=== PATIENT | male | born 1970 | race Caucasian/White ===

== ENCOUNTER → 2017-10-09 | Outpatient (CLI) | payer BC ==
[~2017-10-09] MED LIST: CLC100 PO; CLON0.5T3 PO; DIAZ-165 PO; DICL-201 PO; EFFSR75 PO; NXM/40 PO; OXYC-57 PO; SALINE SPRAY; TYLENOL ALLERGY PO; [UNRECOGNIZED DRUG - CODE] PO
[2017-10-09 17:33] LABS: BASO % 0.4 %; BASO ABS # 0.04 K/uL (0-0.2); COMPLETE YES; EOS % 2.3 %; HEMATOCRIT 41.9 % (42-52); IG% 0.6 %; LYMPH % 34.5 %; LYMPH ABS # 3.32 K/uL (1.2-3.4); MEAN CORPUSCULAR HEMOGLOBIN 26.2 pg (25-34); MEAN PLATELET VOLUME 9.2 fL (7.4-10.4); MONO % 8.7 %; NEUT % 53.5 %; PLATELET COUNT 233 K/uL (130-400); RED BLOOD COUNT 5.11 M/uL (4.7-6.1); WHITE BLOOD COUNT 9.63 K/uL (4.8-10.8)
[2017-10-09 17:52] LABS: BLOOD UREA NITROGEN 7 mg/dl (7-18); BUN/CREATININE RATIO 9.4 (10-20); CALCIUM 8.9 mg/dl (8.5-10.1); CARBON DIOXIDE 28 mmol/L (21-32); CHLORIDE 109 mmol/L (98-107); CREATININE 0.71 mg/dl (0.60-1.40); GLUCOSE 101 mg/dl (70-99); POTASSIUM 4.1 mmol/L (3.5-5.1); SODIUM 142 mmol/L (136-145)
== END | disposition home or self-care (01) ==
LOC: C.LABPBG 13:37
PROVIDERS: ATTEND Family Medicine
DX: R51 Headache (principal)

== ENCOUNTER → 2017-11-11 | Outpatient (CLI) | payer OTHER ==
[2017-11-11 12:42] LABS: BASO % 0.6 %; BASO ABS # 0.03 K/uL (0-0.2); EOS % 4.5 %; EOS ABS # 0.24 K/uL (0-0.5); HEMATOCRIT 40.1 % (42-52); HEMOGLOBIN 13.5 g/dL (14.0-18.0); IG# 0.02 K/uL (0.00-0.02); LYMPH % 46.6 %; LYMPH ABS # 2.46 K/uL (1.2-3.4); MEAN CORPUSCULAR HEMOGLOBIN 27.3 pg (25-34); MEAN CORPUSCULAR HGB CONC 33.7 g/dl (32-36); MEAN PLATELET VOLUME 9.8 fL (7.4-10.4); MONO % 7.6 %; NEUT % 40.3 %; NEUT ABS # 2.13 K/uL (1.4-6.5); PLATELET COUNT 223 K/uL (130-400); RED CELL DISTRIBUTION WIDTH CV 14.6 % (11.5-14.5); RED CELL DISTRIBUTION WIDTH SD 42.5 fL (36.4-46.3); WHITE BLOOD COUNT 5.28 K/uL (4.8-10.8)
[2017-11-11 13:21] LABS: HEMOGLOBIN A1C 6.7 % (4.5-5.6)
[2017-11-11 15:19] LABS: ALBUMIN 3.9 gm/dl (3.4-5.0); ALT/SGPT 40 U/L (12-78); AST/SGOT 24 U/L (15-37); BLOOD UREA NITROGEN 9 mg/dl (7-18); CALCIUM 9.1 mg/dl (8.5-10.1); CARBON DIOXIDE 29 mmol/L (21-32); CREATININE 0.74 mg/dl (0.60-1.40); GLUCOSE 172 mg/dl (70-99); POTASSIUM 4.1 mmol/L (3.5-5.1); SODIUM 139 mmol/L (136-145)
[2017-11-11 15:33] LABS: ALKALINE PHOSPHATASE 75 U/L (45-117); CHOLESTEROL 171 mg/dl (0-200); TOTAL PROTEIN 7.1 gm/dl (6.4-8.2)
== END | disposition home or self-care (01) ==
LOC: C.LABPBG 09:21
PROVIDERS: ATTEND Family Medicine
DX: R61 Generalized hyperhidrosis (principal); E11.40 Type 2 diabetes mellitus with diabetic neuropathy, unspecified

== ENCOUNTER → 2018-06-10 | Outpatient (CLI) | payer OTHER ==
[~2018-06-10] MED LIST changes: -CLON0.5T3 PO; +KLN/5 PO
[2018-06-10 13:38] LABS: HEMOGLOBIN A1C 6.2 % (4.5-5.6)
[2018-06-10 13:57] LABS: ALBUMIN 3.4 gm/dl (3.4-5.0); ALKALINE PHOSPHATASE 93 U/L (45-117); ALT/SGPT 62 U/L (12-78); AST/SGOT 29 U/L (15-37); BLOOD UREA NITROGEN 12 mg/dl (7-18); CALCIUM 8.4 mg/dl (8.5-10.1); CARBON DIOXIDE 26 mmol/L (21-32); CHOLESTEROL 135 mg/dl (0-200); CREATININE 0.72 mg/dl (0.60-1.40); GLUCOSE 123 mg/dl (70-99); LDL CHOLESTEROL CALCULATED 65 mg/dl; POTASSIUM 4.2 mmol/L (3.5-5.1); SODIUM 139 mmol/L (136-145); TOTAL PROTEIN 7.1 gm/dl (6.4-8.2)
== END | disposition home or self-care (01) ==
LOC: C.LABPBG 08:10
PROVIDERS: ATTEND Family Medicine
DX: E11.40 Type 2 diabetes mellitus with diabetic neuropathy, unspecified (principal); E78.5 Hyperlipidemia, unspecified; E66.01 Morbid (severe) obesity due to excess calories

== ENCOUNTER 2024-04-20 15:38 | Observation (INO) ==
--- NOTE | 2024-04-20 15:53 | ED Triage Note ---
Date of Service April 20, 2024 Provider in Triage Author: Daphne Stauffer History of Present Illness This patient was briefly evaluated while in triage. An abbreviated physical exam was performed. This patient is a 53-year-old Male who presents to the ED for evaluation rectal pain x 1.[address] today and was sent over for "fistula" Per CT report : 4 cm left perianal abscess with probable associated perianal fistula. Physical Exam GENERAL: NAD unable to sit CARDIOVASCULAR: RRR RESPIRATORY: CTA Initial orders for labs and / or imaging were placed and patient was placed in the waiting area until a bed is available. Please see further documentation for the full ED course.
--- NOTE | 2024-04-20 16:19 | Emergency Department Note ---
ED Provider Note History of Present Illness Chief Complaint: Referred by Doctor Stated Complaint: ABN RESULTS Time Seen by Provider: 04/20/24 16:17 This is a 53-year-old male who was referred to the emergency department by his primary care provider for a perianal abscess and perianal fistula identified on CT abdomen and pelvis today. The patient developed left-sided rectal pain about 1 to 1.5 weeks ago. The pain has become more severe every day. He has not had any constipation until today. Has not had any fevers or chills. No abdominal pain, nausea, vomiting. He has no history of Crohn's, ulcerative colitis, or abscesses or fistulas in the past. No rectal surgeries in the past. He has not noticed any discharge from his rectum. Home Medications Medication Instructions Recorded Confirmed Type cholecalciferol (vitamin D3) 50 2,000 units PO QAM 11/22/20 04/20/24 History mcg (2,000 unit) capsule fluticasone propionate 50 1 sprays intranasal HS 11/22/20 04/20/24 History mcg/actuation nasal spray,suspension ascorbic acid (vitamin C) 1,000 mg 1 g PO QAM 07/11/21 04/20/24 History tablet multivitamin (Daily Multi-Vitamin 1 tab PO QAM 07/11/21 04/20/24 History tablet) acetaminophen 500 mg oral powder 1,000 mg PO BID PRN Pain 07/16/22 04/20/24 History packet (Tylenol Extra Strength) thiamine HCl (vitamin B1) 250 mg 250 mg PO QAM 11/24/23 04/20/24 History tablet vitamin B complex 1 tab PO QAM 01/09/24 04/20/24 History pregabalin 200 mg capsule (Lyrica) 200 mg PO BID #180 caps 02/03/24 04/20/24 Rx clonidine HCl 0.1 mg tablet 0.1 mg PO HS 04/20/24 04/20/24 History hydroxyzine pamoate 50 mg capsule 50 mg PO HS 04/20/24 04/20/24 History silodosin 8 mg capsule (Rapaflo) 8 mg PO QAM 04/20/24 04/20/24 History Allergies Allergy/AdvReac Type Severity Reaction Status Date / Time No Known Allergies Allergy Mild Verified 04/20/24 18:08 Past Med/Surg History Problem List Perianal fistula (Acute) Abscess, perianal (Acute) Encounter for pre-operative examination Urinary hesitancy Urinary frequency Thiamine deficiency Seizure-like activity History of COVID-19 Anxiety History of alcohol dependence Skin cancer, basal cell L eye S/P gastric bypass (02/15/21) Vitamin D deficiency BPH (benign prostatic hyperplasia) Chronic rhinitis (Acute) Chronic sinusitis (Acute) Morbid obesity (Acute) BMI 45.4 Obstructive sleep apnea (Acute) cpap Vitamin B12 deficiency Diabetic peripheral neuropathy Headache HLD (hyperlipidemia) Iron deficiency anemia Osteoarthritis Type 2 diabetes mellitus GERD (gastroesophageal reflux disease) Medical History History of COVID-19 (2021) resolved History of alcohol dependence (2020) quit 2020 Rectal mass reason for current colonoscopy Hx of pilonidal cyst surgery to remove Diabetic peripheral neuropathy BPH (benign prostatic hyperplasia) prostate checked recently, "said it was fine" Vitamin D deficiency History of panic attacks Anxiety Hx of iron deficiency anemia HLD (hyperlipidemia) History of obstructive sleep apnea no longer uses cpap, resolved with gastric bypass Hx of basal cell carcinoma Hx of type 2 diabetes mellitus resolved with gastric bypass GERD (gastroesophageal reflux disease) 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 Derek brunson. History of esophagogastroduodenoscopy (EGD) History of surgery on right wrist History of left shoulder replacement History of bilateral inguinal hernia repair History of wisdom tooth extraction Status post correction of deviated nasal septum History of umbilical hernia repair Family History Father Rheumatoid arthritis Mother HLD (hyperlipidemia) Aunt Cerebral aneurysm Grandmother (Maternal) Cerebral aneurysm Grandfather (Maternal) Family history of diabetes mellitus Sister Family history of diabetes mellitus Grandfather (Maternal) Myocardial infarction Grandmother (Paternal) Myocardial infarction Grandmother (Maternal) Myocardial infarction Stroke Other No family history of adverse response to anesthesia Denies family history of Ovarian cancer Prostate cancer Breast cancer Colorectal cancer Social History Smoking Status: Unknown if ever smoked Tobacco Type: Cigars Cigarettes Per Day: 5-10 cigars per day; Second Hand Exposure: No; Do You Dip or Chew Tobacco: No; Tobacco Cessation Education Requested by Patient: No Hx Alcohol Use: Yes Alcohol Intake Frequency: Monthly or Less Hx Substance Use: No Preferred Language: Urdu Communication Ability: Effective Visual Impairment: No Limitations Hearing Ability: Normal Inspector General Required: No Beliefs That Will Affect Care: None marital status: Current Living Situation: Spouse Current Living Situation Comment: Lives with and 2kids current occupational status: retired 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[employer]) Other Information That Helps Us Care for You: No Feels Safe at Home: Yes Safety Concerns: Feels Safe At This Time Childhood Exposure to Second-Hand Smoke: Yes Diet: regular Diet Comment: regular caffeine: Yes during the past year weight has: remained stable Dental Care, Regularly: Yes Physical Activity Frequency: Daily Physical Activity Frequency Comment: cut down trees Seatbelt Use: always Sunscreen Use: No Assistive Devices: Glasses Assistive Devices Comment: readers Physical Exam Vital Signs Vital Signs - 24 hr 04/20/24 15:51 04/20/24 18:35 04/20/24 19:58 Temperature 98.1 F Temperature Source Temporal Artery Scan Pulse Rate 75 Pulse Rate [Apical] 56 L 55 L Pulse Rhythm [Apical] Regular Pulse Strength [Apical] Normal Respiratory Rate 19 16 18 Respiratory Effort / Characteristics Non-Labored Spontaneous Non-Labored Spontaneous Respiratory Depth Normal Normal Respiratory Pattern Regular Blood Pressure 108/70 Blood Pressure [Right Arm] 111/69 107/65 Blood Pressure Mean 82 Blood Pressure Mean [Right Arm] 83 79 Blood Pressure Position [Right Arm] Lying Pulse Oximetry 97 96 96 Oxygen Delivery Method Room Air Room Air Room Air Sepsis Recent Fever Within 48 Hours No Sepsis New/Unexplained Change in Mental Status N/A Sepsis Action Taken by Nursing No Action Required CONSTITUTIONAL: Well developed, well nourished, in no acute distress. EYES: conjunctivae normal, extraocular muscles intact. No scleral icterus ENMT: External ears normal. Nose with normal external appearance, no congestion. Oral mucous membranes moist. Oropharynx normal. NECK: Full active range of motion. RESPIRATORY: Breathing unlabored and symmetric. Lungs clear to auscultation bilaterally. No wheeze, rales, or rhonchi. CARDIOVASCULAR: Regular rate and rhythm. No murmurs, rubs, or gallops. ABDOMEN: Normal bowel sounds. Soft, nontender, no peritonitis. No masses. RECTAL: There is swelling and induration along the left side of the rectum. This is very tender to palpation and abuts the anus. There is minimal erythema. MUSCULOSKELETAL: Moves all extremities at all joints without pain or difficulty. SKIN: [place], warm, dry. NEUROLOGIC: Awake, alert, oriented. No focal deficits. PSYCHIATRIC: Appropriate. Normal affect Course Administered Medications Dextrose/Lactated Ringer's (D5w And Lactated Ringers) 1,000 mls @ 80 mls/hr IV .[id number] JENNIFER Stop: 05/20/24 18:44 Last Admin: 04/20/24 19:55 Dose: 80 mls/hr Documented By: WILLIAM Medical Decision Making Differential Diagnosis Perianal abscess, perirectal abscess, fistula, Crohn's, ulcerative colitis, sepsis, among other pathology Laboratory Data 04/20/24 16:07 04/20/24 16:07 Lab Results 04/20/24 Range/Units 16:07 WBC 10.48 (4.8-10.8) K/ul RBC 5.15 (4.70-6.10) M/uL Hgb 16.4 (14.0-18.0) g/dl Hct 47.1 (42.0-52.0) % MCV 91.5 (80.0-100.0) fL MCH 31.8 (25.0-34.0) pg MCHC 34.8 (32.0-36.0) g/dL RDW Std Deviation 43.1 (36.4-46.3) fL RDW Coeff of Shaista 12.8 (11.5-14.5) % Plt Count 185 (130-400) K/uL MPV 9.3 L (9.4-12.4) fL Immature Gran % (Auto) 0.3 % Neut % (Auto) 72.4 % Lymph % (Auto) 17.0 % [place] % (Auto) 7.9 % Eos % (Auto) 1.8 % Baso % (Auto) 0.6 % Neut # (Auto) 7.59 H (1.40-6.50) K/uL Lymph # (Auto) 1.78 (1.20-3.40) K/uL [place] # (Auto) 0.83 H (0.11-0.59) K/uL Eos # (Auto) 0.19 (0.00-0.50) K/uL Baso # (Auto) 0.06 (0.00-0.20) K/uL Immature Gran # (Auto) 0.03 (0.01-0.20) K/uL Sodium 139 (136-145) mmol/L Potassium 3.9 (3.5-5.1) mmol/L Chloride 107 (98-107) mmol/L Carbon Dioxide 28 (21-32) mmol/L Anion Gap 4 (3-11) BUN 9 (6-23) mg/dl Creatinine 0.51 L (0.6-1.4) mg/dl Est Cr Clr Drug Dosing 150.7 ml/min Est GFR ( Amer) 143.2 ml/min Est GFR (Non-Af Amer) 123.6 ml/min BUN/Creatinine Ratio 17.6 (10-20) Glucose 69 L (70-99(Fasting)) mg/dl Calcium 9.3 (8.6-10.3) mg/dl MDM Narrative This is a 53-year-old male who presents to the emergency department with progressive left-sided rectal pain over the past 1 to 1.5 weeks. He had an outpatient CT scan today that demonstrated up to a 4 cm multi loculated fluid collection/perianal abscess with a suspected perianal fistula. Patient well-appearing in no acute distress. He declined anything for pain. IV was inserted and labs were obtained. Patient does have prominence along the left side of the rectum with induration and significant tenderness. Remainder of exam reassuring. Labs: No leukocytosis or anemia. Renal function normal. No electrolyte disturbances. I called and spoke with Dr. Chavis (general surgery on-call) who reviewed his images and we reviewed his examination. She recommends admitting to the hospitalist team for IV antibiotics n.p.o. after midnight and she will manage further, possibly in the OR tomorrow. I spoke with Dr. Arnett (hospitalist, [facility]) Melquiades who agrees to admit the patient. He will start the patient on Zosyn. Impression Abscess, perianal, Perianal fistula Discharge Plan Visit Data Chief Complaint: Referred by Doctor Stated Complaint: ABN RESULTS ED Provider: Kishor Salvador ED Midlevel Provider: Peter Goddard Discharge Problem: Abscess, perianal, Perianal fistula Patient Disposition: Admitted As Inpatient Condition: Good Forms Stand Alone Forms: My [facility] Prescriptions Prescriptions: No Action pregabalin [Lyrica] 200 mg capsule 200 mg PO BID Qty: 180 0RF ascorbic acid (vitamin C) 1,000 mg tablet 1 g PO QAM thiamine HCl (vitamin B1) 250 mg tablet 250 mg PO QAM Tylenol Extra Strength 500 mg powder in packet 1,000 mg PO BID PRN (Reason: Pain) vitamin B complex Tablet 1 tab PO QAM peg [id number] [id number] [Suflave] 178.7-7.3-0.5 gram recon soln 0 ml PO DIRECTED 0RF Rx Instructions: PRIOR TO TESTING fluticasone propionate 50 mcg/actuation spray,suspension 1 sprays intranasal HS cholecalciferol (vitamin D3) 50 mcg (2,000 unit) capsule 2,000 units PO QAM multivitamin [Daily Multi-Vitamin] Tablet 1 tab PO QAM clonidine HCl 0.1 mg tablet 0.1 mg PO HS hydroxyzine pamoate 50 mg capsule 50 mg PO HS silodosin [Rapaflo] 8 mg capsule 8 mg PO QAM Rx Instructions: must administer with a meal/food Referrals Referrals: Ivania Mckeon DO [Primary Care Provider] -
[2024-04-20 16:41] LABS: Basophils # (auto) 0.06 K/uL (0.00-0.20); Basophils % (auto) 0.6 %; Eosinophils # (auto) 0.19 K/uL (0.00-0.50); Eosinophils % (auto) 1.8 %; Hematocrit (blood only) 47.1 % (42.0-52.0); Hemoglobin 16.4 g/dl (14.0-18.0); Immature Granulocytes # (auto) 0.03 K/uL (0.01-0.20); Immature Granulocytes % (auto) 0.3 %; Lymphocytes # (auto) 1.78 K/uL (1.20-3.40); Mean Corpuscular Hemoglobin 31.8 pg (25.0-34.0); Mean Corpuscular Hgb Conc 34.8 g/dL (32.0-36.0); Mean Corpuscular Volume 91.5 fL (80.0-100.0); Mean Platelet Volume 9.3 fL (9.4-12.4); Monocytes # (auto) 0.83 K/uL (0.11-0.59); Monocytes % (auto) 7.9 %; Neutrophils # (auto) 7.59 K/uL (1.40-6.50); Neutrophils % (auto) 72.4 %; Platelet Count 185 K/uL (130-400); RDW Coefficient of Variation 12.8 % (11.5-14.5); RDW Standard Deviation 43.1 fL (36.4-46.3); Red Blood Count 5.15 M/uL (4.70-6.10); White Blood Count 10.48 K/ul (4.8-10.8)
[2024-04-20 16:54] LABS: BUN Creatinine Ratio 17.6 (10-20); Calcium 9.3 mg/dl (8.6-10.3); Creatinine Clr Calc Pharmacy 150.7 ml/min; Est GFR (African American) 143.2 ml/min; Est GFR (Non-African American) 123.6 ml/min; Potassium 3.9 mmol/L (3.5-5.1)
[2024-04-20] MEDS ORDERED: ONDANSETRON INJ 2 MG/ML 2 ML VIAL IV PRN (18:38)
[2024-04-20] MEDS ORDERED: LACTATED RINGER'S 1,000 ML IV SCH (18:45)
--- NOTE | 2024-04-20 18:57 | History & Physical Report ---
Date of Service April 20, 2024 Assessment & Plan (1) Abscess, perianal: Plan: Assessment: 1. Perirectal abscess with perianal fistula. Blood cultures. IV Zosyn. Surgical consultation was obtained from the ER provider at surgery on-call who plans to take the patient to the OR tomorrow for I&D and repair. Patient can have clear liquids after midnight and will be n.p.o. thereafter. 2. Rectal pain secondary to the above. 3. Mild hypoglycemia. D5 LR has been ordered. 4. History of alcoholism but has been sober for 2 years confirmed by he and his at the bedside. 5. History of tobacco abuse he smokes approximately 5-10 many cigars per day. 6. Left-sided nephrolithiasis by CAT scan nonobstructive. 7. Diverticulosis by CAT scan with no evidence of acute diverticulitis. 8. Insomnia. Takes on clonidine and hydroxyzine at at bedtime. Will hold the clonidine given the mild hypotension. Plan: As described above. Please refer to orders for further planning History of Present Illness Chief Complaint: Rectal pain Primary Care Provider: Ivania Mkceon DO This is a 53-year-old was at approximately a week history of increased rectal pain. Saw primary care physician yesterday. CAT scan was ordered for today. Patient had an outpatient CAT scan this is a very significant perirectal abs cess. Patient was directed to the ER for further evaluation and treatment. In the emergency department consultation was obtained with surgery on-call for the ER provider who plans on taking the patient to the OR tomorrow for I&D. This rectal abscess appears to be complicated by a fistula. Laboratory studies returned unremarkable but noted to be hypoglycemic at 69. Will place the patient on D5 LR. Obtain blood cultures. Make the patient n.p.o. after midnight. Patient can have clear liquids till midnight. I will place the patient on IV Zosyn. Allergies Allergy/AdvReac Type Severity Reaction Status Date / Time No Known Allergies Allergy Mild Verified 04/20/24 18:08 Home Medications Medication Instructions Recorded Confirmed Type cholecalciferol (vitamin D3) 50 2,000 units PO QAM 11/22/20 04/20/24 History mcg (2,000 unit) capsule fluticasone propionate 50 1 sprays intranasal HS 11/22/20 04/20/24 History mcg/actuation nasal spray,suspension ascorbic acid (vitamin C) 1,000 mg 1 g PO QAM 07/11/21 04/20/24 History tablet multivitamin (Daily Multi-Vitamin 1 tab PO QAM 07/11/21 04/20/24 History tablet) acetaminophen 500 mg oral powder 1,000 mg PO BID PRN Pain 07/16/22 04/20/24 History packet (Tylenol Extra Strength) thiamine HCl (vitamin B1) 250 mg 250 mg PO QAM 11/24/23 04/20/24 History tablet vitamin B complex 1 tab PO QAM 01/09/24 04/20/24 History pregabalin 200 mg capsule (Lyrica) 200 mg PO BID #180 caps 02/03/24 04/20/24 Rx clonidine HCl 0.1 mg tablet 0.1 mg PO HS 04/20/24 04/20/24 History hydroxyzine pamoate 50 mg capsule 50 mg PO HS 04/20/24 04/20/24 History silodosin 8 mg capsule (Rapaflo) 8 mg PO QAM 04/20/24 04/20/24 History Past Med/Surg History Problem List (Updated 04/20/24 @ 17:42 by JIMENA Morgan) Perianal fistula (Acute) Abscess, perianal (Acute) Encounter for pre-operative examination Urinary hesitancy Urinary frequency Thiamine deficiency Seizure-like activity History of COVID-19 Anxiety History of alcohol dependence Skin cancer, basal cell L eye S/P gastric bypass (02/15/21) Vitamin D deficiency BPH (benign prostatic hyperplasia) Chronic rhinitis (Acute) Chronic sinusitis (Acute) Morbid obesity (Acute) BMI 45.4 Obstructive sleep apnea (Acute) cpap Vitamin B12 deficiency Diabetic peripheral neuropathy Headache HLD (hyperlipidemia) Iron deficiency anemia Osteoarthritis Type 2 diabetes mellitus GERD (gastroesophageal reflux disease) Medical History History of COVID-19 (2021) resolved History of alcohol dependence (2020) quit 2020 Rectal mass reason for current colonoscopy Hx of pilonidal cyst surgery to remove Diabetic peripheral neuropathy BPH (benign prostatic hyperplasia) prostate checked recently, "said it was fine" Vitamin D deficiency History of panic attacks Anxiety Hx of iron deficiency anemia HLD (hyperlipidemia) History of obstructive sleep apnea no longer uses cpap, resolved with gastric bypass Hx of basal cell carcinoma Hx of type 2 diabetes mellitus resolved with gastric bypass GERD (gastroesophageal reflux disease) 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 Derek brunson. History of esophagogastroduodenoscopy (EGD) History of surgery on right wrist History of left shoulder replacement History of bilateral inguinal hernia repair History of wisdom tooth extraction Status post correction of deviated nasal septum History of umbilical hernia repair Family History Father Rheumatoid arthritis Mother HLD (hyperlipidemia) Aunt Cerebral aneurysm Grandmother (Maternal) Cerebral aneurysm Grandfather (Maternal) Family history of diabetes mellitus Sister Family history of diabetes mellitus Grandfather (Maternal) Myocardial infarction Grandmother (Paternal) Myocardial infarction Grandmother (Maternal) Myocardial infarction Stroke Other No family history of adverse response to anesthesia Denies family history of Ovarian cancer Prostate cancer Breast cancer Colorectal cancer Social History Smoking Status: Unknown if ever smoked Tobacco Type: Cigars Cigarettes Per Day: 5-10 cigars per day; Second Hand Exposure: No; Do You Dip or Chew Tobacco: No; Tobacco Cessation Education Requested by Patient: No Hx Alcohol Use: Yes Alcohol Intake Frequency: Monthly or Less Hx Substance Use: No Preferred Language: Tongan Communication Ability: Effective Visual Impairment: No Limitations Hearing Ability: Normal Lawn Care Technician Required: No Beliefs That Will Affect Care: None marital status: Current Living Situation: Spouse Current Living Situation Comment: Lives with and 2kids current occupational status: retired 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[employer]) Other Information That Helps Us Care for You: No Feels Safe at Home: Yes Safety Concerns: Feels Safe At This Time Childhood Exposure to Second-Hand Smoke: Yes Diet: regular Diet Comment: regular caffeine: Yes during the past year weight has: remained stable Dental Care, Regularly: Yes Physical Activity Frequency: Daily Physical Activity Frequency Comment: cut down trees Seatbelt Use: always Sunscreen Use: No Assistive Devices: Glasses Assistive Devices Comment: readers Review of Systems Review of Systems: A 10 point review of system was obtained and unless otherwise stated here or in history of present illness are negative and noncontributory to chief complaint. Physical Exam Physical Exam: In General: In general very pleasant 53-year-old male is alert and oriented x 3 at the time of my exam. He is accompanied by his at the time of my examination. He interacts appropriately. His pain is not controlled with Tylenol at home. He request nothing more than Tylenol. HEENT: Normocephalic atraumatic pupils are equal round and reactive to light bilaterally. No scleral icterus no conjunctival injection external auditory canals are patent septum is in the midline nose is without discharge oral mucosa is pink and moist without lesion. NECK: Supple no rigidity no lymphadenopathy no thyromegaly no carotid bruits no JVD no masses. HEART: Regular rate and rhythm I do not appreciate any ectopy or rub. No murmur. LUNGS: Clear to auscultation bilaterally and anteriorly with no evidence of adventitious sounds/wheezes rales or rhonchi. ABDOMEN: Soft nontender, no rebound, no peritoneal signs, positive bowel sounds, no appreciable organomegaly. Rectal exam not performed. CAT scans as described above. EXTREMITIES: Intact, no peripheral cyanosis, clubbing or edema. Strength is 5 out of 5 in extremities x4, no pathological reflexes. NEUROLOGICAL: Cranial nerves II through XII are grossly intact with no focal deficit elicited upon examination. No tremor. Results & Data Results & Data Vital Signs (Past 12 Hours) Vital Signs Temp Pulse Pulse Resp BP BP Pulse Ox 04/20/24 18:35 56 L 16 111/69 96 04/20/24 15:51 36.7 C 75 19 108/70 97 O2 Del Method 04/20/24 18:35 Room Air 04/20/24 15:51 Room Air Code Status & VTE Plan Code Status Full code-I personally discussed with patient at the bedside. VTE Prophylaxis Plan VTE Prophylaxis will be ordered: Yes PG Care Time/CCT Total # of Minutes Spent Total Time Spent with Patient: Total time spent is greater than 50% in coordination of care (as documented) at patient's floor/unit and/or counseling patient: Coding Level of Care Code 94861 INT INP/OBS CARE MIN Diagnoses Abscess, perianal K61.0
--- NOTE | 2024-04-20 19:27 | Surgery Consultation ---
Date of Consultation April 20, 2024 Assessment & Plan (1) Abscess, perianal: The patient is being admitted on the hospital service. From surgery perspective we recommend the following: Patient may have a diet at the present time but we will make him n.p.o. at midnight tonight We will tentatively plan on scheduling the patient for drainage of his perianal/perirectal abscess on 04/21/[address] David Mckeon. She will determine if the rectal exam under anesthesia will be required at this time as well. Analgesics will be provided Antiemetics to be provided Antibiotics in form of Zosyn has been initiated and this will continue. Patient has had blood cultures checked. Will also plan on performing operative cultures at the time of drainage of his abscess. Antibiotics can be tailored based on the results of cultures. Additional recommendations be forthcoming based on operative findings, his postoperative recovery, and his clinical course as it unfolds Supervising Physician Co-Signing Physician Notes I have discussed this case with the surgical PA and I agree with this plan. History of Present Illness Reason for Consultation: Perianal abscess History of Present Illness This is a 53-year-old male who presented the emergency department secondary to a perianal/perirectal abscess. The patient notes that for approximately the past 2 weeks he has been having some pain just to the left of his rectum. He does not report any scrapes, cuts, or excoriations to this area. He denies any open areas or areas of drainage. He denies any fevers, shakes, or chills. He notes that the area has been getting progressively worse over the past 2 weeks. He denies any modifying factors to the pain. He also notes that it really is not painful when he has bowel movements. Patient notes that he did have a colonoscopy most recently in this study the patient's perianal and digital rectal exams were noted to be HEAD: Normocephalic, no signs of injury or scalp lesions. The patient was noted to have a large scar in the rectum with some nodularity adjacent to it which was felt to possibly be the remnant of a polyp and this was removed with a cold snare. The patient was noted to have some sigmoid and descending colon diverticulosis but no other significant findings were noted on this study. The patient notes that he has never had his presenting problem before. Because of the ongoing nature of the problem he was able to seek medical attention with his primary care physician yesterday and a CT scan of the abdomen and pelvis was performed. This study was performed today. The CT scan of the abdomen pelvis did show that patient had a 4 cm left perianal abscess with concern for an associated perianal fistula. Because of the CT scan findings the patient was referred to the emergency department. Since arrival to the emergency department he has had labs where CBC revealed white blood cell count, hemoglobin, hematocrit, and platelet count were normal. Chemistry profile showed sodium and potassium as well as the BUN were normal. His creatinine was nonelevated at 0.5. At the time my interview the patient was resting comfortably bed he was no distress. Allergies Allergy/AdvReac Type Severity Reaction Status Date / Time No Known Allergies Allergy Mild Verified 04/21/24 07:31 Home Medications Medication Instructions Recorded Confirmed Type cholecalciferol (vitamin D3) 50 2,000 units PO QAM 11/22/20 04/20/24 History mcg (2,000 unit) capsule fluticasone propionate 50 1 sprays intranasal HS 11/22/20 04/20/24 History mcg/actuation nasal spray,suspension ascorbic acid (vitamin C) 1,000 mg 1 g PO QAM 07/11/21 04/20/24 History tablet multivitamin (Daily Multi-Vitamin 1 tab PO QAM 07/11/21 04/20/24 History tablet) acetaminophen 500 mg oral powder 1,000 mg PO BID PRN Pain 07/16/22 04/20/24 History packet (Tylenol Extra Strength) thiamine HCl (vitamin B1) 250 mg 250 mg PO QAM 11/24/23 04/20/24 History tablet vitamin B complex 1 tab PO QAM 01/09/24 04/20/24 History pregabalin 200 mg capsule (Lyrica) 200 mg PO BID #180 caps 02/03/24 04/20/24 Rx clonidine HCl 0.1 mg tablet 0.1 mg PO HS 04/20/24 04/20/24 History hydroxyzine pamoate 50 mg capsule 50 mg PO HS 04/20/24 04/20/24 History silodosin 8 mg capsule (Rapaflo) 8 mg PO QAM 04/20/24 04/20/24 History Patient History Medical History History of COVID-19 (2021) resolved History of alcohol dependence (2020) quit 2020 Rectal mass reason for current colonoscopy Hx of pilonidal cyst surgery to remove Diabetic peripheral neuropathy BPH (benign prostatic hyperplasia) prostate checked recently, "said it was fine" Vitamin D deficiency History of panic attacks Anxiety Hx of iron deficiency anemia HLD (hyperlipidemia) History of obstructive sleep apnea no longer uses cpap, resolved with gastric bypass Hx of basal cell carcinoma Hx of type 2 diabetes mellitus resolved with gastric bypass GERD (gastroesophageal reflux disease) 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 Derek brunson. History of esophagogastroduodenoscopy (EGD) History of surgery on right wrist History of left shoulder replacement History of bilateral inguinal hernia repair History of wisdom tooth extraction Status post correction of deviated nasal septum History of umbilical hernia repair Family History Father Rheumatoid arthritis Mother HLD (hyperlipidemia) Aunt Cerebral aneurysm Grandmother (Maternal) Cerebral aneurysm Grandfather (Maternal) Family history of diabetes mellitus Sister Family history of diabetes mellitus Grandfather (Maternal) Myocardial infarction Grandmother (Paternal) Myocardial infarction Grandmother (Maternal) Myocardial infarction Stroke Other No family history of adverse response to anesthesia Denies family history of Ovarian cancer Prostate cancer Breast cancer Colorectal cancer Social History Smoking Status: Never smoker Tobacco Type: Cigars Cigarettes Per Day: 5-10 cigars per day; Second Hand Exposure: No; Do You Dip or Chew Tobacco: No; Hx Alcohol Use: No Hx Substance Use: No Preferred Language: Romansh Communication Ability: Effective Visual Impairment: No Limitations Hearing Ability: Normal Detailer Furniture Required: No Beliefs That Will Affect Care: None marital status: Current Living Situation: Spouse Current Living Situation Comment: Lives with and 2kids current occupational status: retired current occupation: has own [employer] (Fawn Lundberg) Feels Safe at Home: Yes Childhood Exposure to Second-Hand Smoke: Yes Diet: regular Diet Comment: regular caffeine: Yes during the past year weight has: remained stable Dental Care, Regularly: Yes Physical Activity Frequency: Daily Physical Activity Frequency Comment: cut down trees Seatbelt Use: always Sunscreen Use: No Assistive Devices: Glasses Review of Systems Review of Systems: All systems reviewed & are unremarkable except as noted in HPI & below Physical Exam Constitutional: WD/WN, vitals as above Eyes: no conjunctival abnormality ENMT: Ears: no hearing impairment and no external ear abnormality Mouth: no oropharynx abnormality Neck: trachea midline Respiratory: normal respiratory effort; no respiratory distress and no labored breathing Cardiovascular: Rate/Rhythm: regular rate and regular rhythm Gastrointestinal (Abdomen): Abdomen was soft and nonrigid. There is no tenderness to palpation Patient's rectum was examined. On the left side at approximately 9 o'clock position the patient had an area of induration and erythema. There is no crepitus noted in this tissue. There are no open areas of drainage. The area was painful to palpation. Musculoskeletal: No calf tenderness Skin: no rashes Neurologic: moves all extremities Psychiatric: Orientation: alert and oriented x 3 Results & Data Vital Signs (Past 12 Hours) Vital Signs Temp Pulse Pulse Resp BP BP Pulse Ox 04/20/24 18:35 56 L 16 111/69 96 04/20/24 15:51 36.7 C 75 19 108/70 97 O2 Del Method 04/20/24 18:35 Room Air 04/20/24 15:51 Room Air PG Care Time/CCT Total # of Minutes Spent Total Time Spent with Patient: Total time spent is greater than 50% in coordination of care (as documented) at patient's floor/unit and/or counseling patient: Coding Level of Care Code 21363 OFFICE CONSULT LVL Diagnoses Abscess, perianal K61.0
[2024-04-20] MEDS: D5W AND LACTATED RINGERS 1,000 ML IV SCH (19:55)
[2024-04-20] MEDS: PIPERACILLIN/TAZOBACTAM 4.5 GM/100ML D5W IV ONE (20:56)
[2024-04-20] MEDS: PIPER/TAZO 4.5g in D5W MINI-B 100 ML IV ONE (21:55)
[2024-04-20] MEDS: hydrOXYzine HCl 25 MG TAB PO SCH (23:22)
[2024-04-20] MEDS: ACETAMINOPHEN 325 MG TAB PO PRN (23:22)
[2024-04-20] MEDS: PREGABALIN 100 MG CAP PO SCH (23:22)
[2024-04-21] MEDS: PIPERACILLIN/TAZOBACTAM 4.5 GM in DEXTROSE 5% MINI-B 100 ML IV SCH (02:34)
[2024-04-21] MEDS ORDERED: LIDOCAINE 2% 2 ML VIAL/AMP(20MG/ML) INFIL ONE (07:08)
[2024-04-21] MEDS ORDERED: MIDAZOLAM HCL 1 MG/ML 2ML VIAL ONE (07:09)
[2024-04-21] MEDS ORDERED: ONDANSETRON INJ 2 MG/ML 2 ML VIAL ONE (07:09)
[2024-04-21] MEDS ORDERED: PROPOFOL IV EMULSION 10 MG/ML 20 ML VIAL IV ONE (07:09)
[2024-04-21] MEDS ORDERED: fentaNYL citrate PF 100 MCG/2 ML VIAL ONE (07:09)
--- NOTE | 2024-04-21 07:28 | Anesthesiology Consultation ---
Date of Service April 21, 2024 Assessment & Plan Chart Review Chart Review: Acceptable Risk for Surgery and Patient NOT seen in Pre Admission Testing History Surgery Operation Date: 04/21/24 07:00 Proposed Procedures p Drainage Perirectal Abscess, Rectal Exam - Jose Miguel Chavis DO Height/Weight Height: 5 ft 9 in Weight: 81 kg Allergies Allergy/AdvReac Type Severity Reaction Status Date / Time No Known Allergies Allergy Mild Verified 04/20/24 18:08 Medications Home Medications Medication Instructions Recorded Confirmed Last Taken cholecalciferol (vitamin D3) 50 2,000 units PO QAM 11/22/20 04/20/24 04/20/24 mcg (2,000 unit) capsule fluticasone propionate 50 1 sprays intranasal 11/22/20 04/20/24 04/19/24 mcg/actuation nasal spray,suspension ascorbic acid (vitamin C) 1,000 mg 1 g PO QAM 07/11/21 04/20/24 04/20/24 tablet multivitamin (Daily Multi-Vitamin 1 tab PO QA 07/11/21 04/20/24 04/20/24 tablet) acetaminophen 500 mg oral powder 1,000 mg PO BID PRN Pain 07/16/22 04/20/24 Unknown packet (Tylenol Extra Strength) thiamine HCl (vitamin B1) 250 mg 250 mg PO QA 11/24/23 04/20/24 04/20/24 tablet vitamin B complex 1 tab PO QA 01/09/24 04/20/24 04/20/24 pregabalin 200 mg capsule (Lyrica) 200 mg PO BID #180 caps 02/03/24 04/20/24 04/20/24 08:00 clonidine HCl 0.1 mg tablet 0.1 mg PO 04/20/24 04/20/24 04/19/24 hydroxyzine pamoate 50 mg capsule 50 mg PO 04/20/24 04/20/24 04/19/24 silodosin 8 mg capsule (Rapaflo) 8 mg PO QA 04/20/24 04/20/24 04/20/24 Active Medications Generic Name Dose Route Start Last Admin Trade Name Freq PRN Reason Stop Dose Admin Acetaminophen 650 mg 04/20/24 18:38 04/20/24 23:22 Acetaminophen 325 Mg Tab PO 05/20/24 18:37 650 mg Q4H PRN Administration Pain or Fever Hydroxyzine HCl 50 mg 04/20/24 21:10 04/20/24 23:22 Hydroxyzine Hcl 25 Mg Tab PO 05/20/24 21:09 50 mg HS JENNIFER Administration Piperacillin Sod/Tazobactam 100 mls @ 25 mls/hr 04/21/24 02:00 04/21/24 06:41 Sod 4.5 gm/ Dextrose IV 05/01/24 01:59 Infused Q8H JENNIFER Infusion Protocol Dextrose/Lactated Ringer's 1,000 mls @ 80 mls/hr 04/20/24 18:45 04/21/24 06:41 D5w And Lactated Ringers IV 05/20/24 18:44 Infused .[id number] JENNIFER Infusion Pregabalin 200 mg 04/20/24 21:10 04/20/24 23:22 Pregabalin 100 Mg Cap PO 05/20/24 21:09 200 mg BID JENNIFER Administration Past Medical History Medical History History of COVID-19 (2021) resolved History of alcohol dependence (2020) quit 2020 Rectal mass reason for current colonoscopy Hx of pilonidal cyst surgery to remove Diabetic peripheral neuropathy BPH (benign prostatic hyperplasia) prostate checked recently, "said it was fine" Vitamin D deficiency History of panic attacks Anxiety Hx of iron deficiency anemia HLD (hyperlipidemia) History of obstructive sleep apnea no longer uses cpap, resolved with gastric bypass Hx of basal cell carcinoma Hx of type 2 diabetes mellitus resolved with gastric bypass GERD (gastroesophageal reflux disease) 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, IBS (irritable bowel syndrome) no issues currently Hypertrophy of nasal turbinates Chronic rhinitis Chronic sinusitis Past Family History Family History Father Rheumatoid arthritis Mother HLD (hyperlipidemia) Aunt Cerebral aneurysm Grandmother (Maternal) Cerebral aneurysm Grandfather (Maternal) Family history of diabetes mellitus Sister Family history of diabetes mellitus Grandfather (Maternal) Myocardial infarction Grandmother (Paternal) Myocardial infarction Grandmother (Maternal) Myocardial infarction Stroke Other No family history of adverse response to anesthesia Denies family history of Ovarian cancer Prostate cancer Breast cancer Colorectal cancer Past Surgical History Surgical History Hx of cystoscopy (2023) had stricture History of surgery Pilondial cyst removal Hx of gastric bypass (2020) Angi Hx of basal cell carcinoma excision under left eye H/O colonoscopy (2021) November 12, 2021. Derek brunson. History of esophagogastroduodenoscopy (EGD) History of surgery on right wrist History of left shoulder replacement History of bilateral inguinal hernia repair History of wisdom tooth extraction Status post correction of deviated nasal septum History of umbilical hernia repair Social History Smoking Status: Never smoker tobacco type: smokeless tobacco Smoking cigarettes per day: 5-10 cigars per day Do You Dip or Chew Tobacco: No Hx Alcohol Use: No alcohol intake frequency: other Hx Substance Use: No substance use type: does not use Physical Exam Vital Signs Last Vital Signs Temp 36.7 C 04/21/24 03:19 Pulse 53 L 04/21/24 03:19 Resp 18 04/21/24 03:19 BP 97/62 L 04/21/24 03:19 Pulse Ox 95 04/21/24 03:19 O2 Del Method Room Air 04/21/24 03:19 Testing Laboratory Results 04/20/24 16:07 04/20/24 16:07
[2024-04-21] MEDS: LACTATED RINGER'S 1,000 ML IV SCH (07:40)
[2024-04-21] MEDS ORDERED: ATROPINE SULFATE 0.1 MG/ML 10ML SYR IV PRN (07:53)
[2024-04-21] MEDS ORDERED: HYDROmorphone INJ 1 MG/ML SYRINGE IV PRN (07:53)
[2024-04-21] MEDS ORDERED: ONDANSETRON INJ 2 MG/ML 2 ML VIAL IV PRN (07:53)
[2024-04-21] MEDS ORDERED: fentaNYL citrate PF 100 MCG/2 ML VIAL IV PRN (07:53)
[2024-04-21] MEDS ORDERED: ePHEDrine sulfate 50 MG/ML AMP IV PRN (07:53)
--- NOTE | 2024-04-21 08:11 | Hospitalist Progress Note ---
Date of Service April 21, 2024 Assessment & Plan (1) Abscess, perianal: Plan: Perirectal abscess with perianal fistula. Blood cultures. IV Zosyn. Surgical consultation OR 04/21 for I&D and repair. 3. Mild hypoglycemia. D5 LR has been ordered. 4. History of alcoholism but has been sober for 2 years confirmed by he and his at the bedside. 5. History of tobacco abuse he smokes approximately 5-10 many cigars per day. 6. Left-sided nephrolithiasis by CAT scan nonobstructive. 7. Diverticulosis by CAT scan with no evidence of acute diverticulitis. 8. Insomnia. Takes on clonidine and hydroxyzine at at bedtime. Will hold the clonidine given the mild hypotension. Admission and Anticipated Discharge Date Admission Date: April 20, 2024 Results & Data Results & Data Vital Signs (Past 12 Hours) Vital Signs Temp Pulse Pulse Pulse Resp BP Pulse Ox 04/21/24 07:32 98.8 F 63 18 92/62 L 96 04/21/24 07:00 57 L 04/21/24 03:19 98.1 F 53 L 18 97/62 L 95 04/20/24 23:37 61 04/20/24 23:35 98.8 F 67 18 119/77 93 O2 Del Method 04/21/24 07:32 Room Air 04/21/24 07:00 04/21/24 03:19 Room Air 04/20/24 23:37 04/20/24 23:35 Room Air PG Care Time/CCT Total # of Minutes Spent Total Time Spent with Patient: Total time spent is greater than 50% in coordination of care (as documented) at patient's floor/unit and/or counseling patient: Coding Diagnoses Abscess, perianal K61.0
--- NOTE | 2024-04-21 08:32 | Surgery Progress Note ---
Date of Service April 21, 2024 Assessment & Plan (1) Abscess, perianal: Plan: Plan is for I&D of the area in the OR this am. The details of the procedure have been explained to MR. Lundberg including the risks and benefits. He expressed understanding of this explanation and all of his questions were answered. Consent was obtained. Admission and Anticipated Discharge Date Admission Date: April 20, 2024 Subjective Denies F/C o/n. Still with pain this am. No drainage of the area still. Physical Exam Constitutional: healthy appearing; not ill appearing, not in distress and not diaphoretic Respiratory: normal respiratory effort; no respiratory distress, no labored breathing and does not use accessory muscles Results & Data Vital Signs (Past 12 Hours) Vital Signs Temp Pulse Pulse Pulse Resp BP Pulse Ox 04/21/24 07:32 37.1 C 63 18 92/62 L 96 04/21/24 07:00 57 L 04/21/24 03:19 36.7 C 53 L 18 97/62 L 95 04/20/24 23:37 61 04/20/24 23:35 37.1 C 67 18 119/77 93 O2 Del Method 04/21/24 07:32 Room Air 04/21/24 07:00 04/21/24 03:19 Room Air 04/20/24 23:37 04/20/24 23:35 Room Air PG Care Time/CCT Total # of Minutes Spent Total Time Spent with Patient: Total time spent is greater than 50% in coordination of care (as documented) at patient's floor/unit and/or counseling patient: Coding Level of Care Code 90355 SUB INP/OBS CARE 11/27MIN Diagnoses Abscess, perianal K61.0
[2024-04-21] MEDS: BUPIVACAINE 0.5 % 5 MG/1 ML MPF 30ML VIAL INJ ONE (09:04)
--- NOTE | 2024-04-21 09:20 | Operative Report ---
PG Post Operative Report Pre & Post Diagnosis Operation Date: 04/21/24 07:00 Pre-Op Diagnosis: PERIRECTAL ABSCESS Post-Op Diagnosis: PERIRECTAL ABSCESS I identified the patient and participated in the time-out.: Yes Procedure Operation Date: 04/21/24 07:00 Actual Procedures p Drainage Perirectal Abscess, Rectal Exam(Not Applicable) - Jose Miguel Chavis DO Surgeon Jose Miguel Chavis DO Health Promotion Educator JIMENA Oakley Estimated Blood Loss 10 Findings See Below Copious amounts of purulent fluid in the left perirectal/perianal space Culture swab obtained and sent to microbiology lab Specimens None Anesthesia Type General Complications None Description of Procedure The patient was brought back to the operating room and placed on the operating room table in lithotomy position. He was connected to cardiac and oxygen monit oring. SCDs were applied to bilateral lower extremities. The patient was administered general anesthesia and a secure airway was established. The perineal area was prepped and draped in typical sterile fashion and a timeout was performed An area of fluctuance was identified at the left perianal region, inner gluteal fold and local anesthetic was used to anesthetize the skin and subcutaneous tiss ue. A 15 blade was used to make a cruciate incision at this location which instantly resulted and the evacuation of the copious amounts of bloody and heavy purulent drainage. A culture swab was taken and sent to the microbiology lab for further analysis. The area was irrigated multiple times using sterile saline. A small amount of bleeding from 1 of the skin edges of the cruciate incision was controlled using cautery. The abscess cavity was then gently packed with half inch plain packing. The abscess cavity extended for roughly 3 cm superiorly. Additional local anesthetic was injected into the soft tissues of the area. The area was then dressed with dry sterile gauze, and an ABD that was secured in place with tape. The patient tolerated procedure well. He was awakened from anesthesia, the secure airway was removed and he was transferred to recovery in stable condition I attest to the content of the Intraoperative Record and any orders documented therein. Any exceptions are noted below.
[2024-04-21] MEDS ORDERED: ePHEDrine sulfate 50 MG/5 ML SYR ONE (10:11)
--- NOTE | 2024-04-21 10:30 | Anesthesiology Progress Note ---
Date of Service April 21, 2024 Anesthesia Post Procedure Vital Signs Vital Signs: Temp Pulse Pulse Pulse Resp BP BP 04/21/24 10:10 57 L 19 100/60 04/21/24 10:05 58 L 21 100/59 L 04/21/24 09:50 36.2 C L 57 L 16 101/72 04/21/24 09:40 73 17 103/68 04/21/24 09:30 54 L 17 101/64 04/21/24 09:20 36 C L 69 13 115/69 04/21/24 07:32 37.1 C 63 18 92/62 L 04/21/24 07:00 57 L 04/21/24 03:19 36.7 C 53 L 18 97/62 L 04/20/24 23:37 61 04/20/24 23:35 37.1 C 67 18 119/77 04/20/24 19:58 55 L 18 107/65 04/20/24 18:35 56 L 16 111/69 04/20/24 15:51 36.7 C 75 19 108/70 Pulse Ox O2 Del Method O2 Flow Rate 04/21/24 10:10 93 Room Air 04/21/24 10:05 93 Room Air 04/21/24 09:50 95 Room Air 04/21/24 09:40 95 Room Air 04/21/24 09:30 99 Oxymask 4 04/21/24 09:20 97 Oxymask 14 04/21/24 07:32 96 Room Air 04/21/24 07:00 04/21/24 03:19 95 Room Air 04/20/24 23:37 04/20/24 23:35 93 Room Air 04/20/24 19:58 96 Room Air 04/20/24 18:35 96 Room Air 04/20/24 15:51 97 Room Air Pain Intensity Rectal: Pain Intensity: 4 Transfer of Care Handoff Completed per policy Notes Mental Status: alert / awake / arousable and participated in evaluation Patient Amnestic to Procedure: Yes Nausea / Vomiting: adequately controlled Pain: adequately controlled Airway Patency, RR, SpO2: stable & adequate BP & HR: stable & adequate Hydration State: stable & adequate Anesthetic Complications: no major complications apparent and Pt Satisfied with anesthetic care
[2024-04-21] MEDS ORDERED: MoRPHine SULFATE 4 MG/ML 1 ML CARP\\VIAL IV PRN (10:33)
[2024-04-21] MEDS ORDERED: MoRPHine SULFATE 2 MG/ML CARP IV PRN (10:33)
[2024-04-21] MEDS ORDERED: oxyCODONE HCL IR 5 MG TAB (IMMEDIATE RELEASE) PO PRN ×2 (10:33)
[2024-04-21] MEDS: THIAMINE HCL 50 MG TABLET PO SCH (11:09)
--- NOTE | 2024-04-21 13:58 | Discharge Summary ---
Discharge Summary Date of Service April 21, 2024 Principal Dx & Hospital Course #1 = Principal Diagnosis (1) Abscess, perianal: Perirectal abscess with perianal fistula. Blood cultures. IV Zosyn. Surgical consultation OR 04/21 for I&D and repair. Surgical team is satisfied with the repair is okay to have the patient be discharged home will be discharged on 2- week course of Augmentin with Ultram for pain recommending Tylenol if Ultram is not required and having a low fiber diet. Following up with surgery History of alcoholism but has been sober for 2 years confirmed by he and his at the bedside. History of tobacco abuse he smokes approximately 5-10 many cigars per day. Left-sided nephrolithiasis by CAT scan nonobstructive. . Insomnia. Takes on clonidine and hydroxyzine at at bedtime. Will hold the clonidine given the mild hypotension. Plan Discharged home with surgical follow-up as an outpatient Notes For Next Care Provider Patient is discharged on Augmentin cautiously as clavulanic acid can cause diarrhea. If need be transition to quinolone and metronidazole if intolerant of Augmentin. Dispensing small amount of Ultram for pain Admission HPI Per Admitting Provider This is a 53-year-old was at approximately a week history of increased rectal pain. Saw primary care physician yesterday. CAT scan was ordered for today. Patient had an outpatient CAT scan this is a very significant perirectal abscess. Patient was directed to the ER for further evaluation and treatment. In the emergency department consultation was obtained with surgery on-call for the ER provider who plans on taking the patient to the OR tomorrow for I&D. This rectal abscess appears to be complicated by a fistula. Laboratory studies returned unremarkable but noted to be hypoglycemic at 69. Will place the patient on D5 LR. Obtain blood cultures. Make the patient n.p.o. after midnight. Patient can have clear liquids till midnight. I will place the patient on IV Zosyn. Discharge Exam Awake alert appropriate. Patient is in the company of his family. He has no significant rectal distress. Updated Medication List Medication Instructions Recorded Confirmed Type cholecalciferol (vitamin D3) 50 2,000 units PO QAM 11/22/20 04/20/24 History mcg (2,000 unit) capsule fluticasone propionate 50 1 sprays intranasal HS 11/22/20 04/20/24 History mcg/actuation nasal spray,suspension ascorbic acid (vitamin C) 1,000 mg 1 g PO QAM 07/11/21 04/20/24 History tablet multivitamin (Daily Multi-Vitamin 1 tab PO QAM 07/11/21 04/20/24 History tablet) acetaminophen 500 mg oral powder 1,000 mg PO BID PRN Pain 07/16/22 04/20/24 History packet (Tylenol Extra Strength) thiamine HCl (vitamin B1) 250 mg 250 mg PO QAM 11/24/23 04/20/24 History tablet vitamin B complex 1 tab PO QAM 01/09/24 04/20/24 History pregabalin 200 mg capsule (Lyrica) 200 mg PO BID #180 caps 02/03/24 04/20/24 Rx clonidine HCl 0.1 mg tablet 0.1 mg PO HS 04/20/24 04/20/24 History hydroxyzine pamoate 50 mg capsule 50 mg PO HS 04/20/24 04/20/24 History silodosin 8 mg capsule (Rapaflo) 8 mg PO QAM 04/20/24 04/20/24 History amoxicillin 875 mg-potassium 1 tab PO BID #28 tabs 04/21/24 Rx clavulanate 125 mg tablet tramadol 50 mg tablet 50 - 100 mg (1 - 2 x 50 mg) PO BID 04/21/24 Rx PRN pain #20 tabs Hospital Stay Data Consultations 04/20/24 17:43 Consult General Surgery Routine 04/20/24 18:12 ED Decision to Admit Stat Procedures Performed Operation Date: 04/21/24 07:00 Actual Procedures p Drainage Perirectal Abscess, Rectal Exam(Not Applicable) - Jose Miguel Mckeon DO Pending Results Patient Have Any Pending Studies at Discharge: Yes Discharge Instructions Given to Patient (Per Discharging Provider) Take warm sitz baths 3-4x/daily to help cleanse the area and for comfort You may remove your surgical packing on 04/22/24. If you are able to replace with some 1/2" plain nu-gauze, lightly packed in the area daily this would be ideal over the next two days. If you do not have help it is okay and once you remove the surgical packing please re-dress the wound with dry 4x4 gauze, ABD pad and medipore tape (daily and as needed if becomes soiled) to help collect any drainage. Sometimes it may be useful to place a pad in your undergarments to help collect any drainage and wear compressive underwear to help keep dressing in place Complete the full course of antibiotic prescribed to you Total Time Total Time Spent Total Time Spent (In Minutes): It required greater than 30 minutes to prepare this patient for discharge. Coding Level of Care Code 58068 INP/OBS DISCH >30 MIN Diagnoses Abscess, perianal K61.0
[2024-04-21 14:25] LABS: A calco-baum cmplx NotReported Not Detected (NotDetected); Bact fragilis Not Reported Not Detected (NotDetected); Blood Culture Id Panel See PCR Comment (NotDetected); C auris Not Reported Not Detected (NotDetected); Calbicans Not Reported Not Detected (NotDetected); Candida glabrata Not Reported Not Detected (NotDetected); Candida krusei Not Reported Not Detected (NotDetected); Cneoformans/gatti Not Reported Not Detected (NotDetected); Cparapsilosis Not Reported Not Detected (NotDetected); E cloacae compx Not Reported Not Detected (NotDetected); Efaecalis Not Reported Not Detected (NotDetected); Efaecium Not Reported Not Detected (NotDetected); Enterobacterales Not Reported Not Detected (NotDetected); Escherichia coli Not Reported Not Detected (NotDetected); H influenzae Not Reported Not Detected (NotDetected); K aerogenes Not Reported Not Detected (NotDetected); Koxytoca Not Reported Not Detected (NotDetected); Kpneumoniae grp Not Reported Not Detected (NotDetected); Lmonocyt Not Reported Not Detected (NotDetected); N meningitidis Not Reported Not Detected (NotDetected); P aeruginosa Not Reported Not Detected (NotDetected); Proteus spp Not Reported Not Detected (NotDetected); Salmonella spp Not Reported Not Detected (NotDetected); Smarcescens Not Reported Not Detected (NotDetected); Staph lugdunensis Not Reported Not Detected (NotDetected); Staph spp. Not Reported DETECTED (NotDetected); Staphaureus Not Reported Not Detected (NotDetected); Staphepi Not Reported Not Detected (NotDetected); Stenmaltophilia Not Reported Not Detected (NotDetected); Strep agal(GrpB) Not Reported Not Detected (NotDetected); Strep pneum Not Reported Not Detected (NotDetected); Strep pyog (GrpA) Not Reported Not Detected (NotDetected); Strep spp Not Reported Not Detected (NotDetected)
[2024-04-21 14:53] LABS: Staphylococcus spp. DETECTED (NotDetected)
== END 2024-04-21 15:05 | disposition home or self-care (01) | DRG 349 ==
LOC: ED 15:38 → INTOOBSV 18:40 → EDINP 18:40 → SUATTDRO 18:40 → 4W 21:11